=== PATIENT | female | born 1995 | race Two or more races ===

== ENCOUNTER 2017-12-26 06:21 | Outpatient (CLI) | payer OTHER ==
[2017-12-27] MEDS ORDERED: PRENATAL TABLE1 EAC3 PO (11:07)
== END 2017-12-26 09:45 | disposition home or self-care (01) ==
LOC: OBS/DEL 06:21
DX: O47.1 False labor at or after 37 completed weeks of gestation (principal); Z34.03 Encounter for supervision of normal first pregnancy, third trimester

== ENCOUNTER 2017-12-27 05:58 | Inpatient (IN) | payer OTHER ==
[~2017-12-27] VITALS: Ht 165.1 cm; Wt 72.6 kg
[2017-12-27] MEDS ORDERED: PRENATAL TABLE1 EAC3 PO (11:07)
== END 2017-12-29 11:51 | DRG 775 ==
LOC: LDR 05:58 → OB/GYN 05:58
PROC: 0KQM0ZZ Repair Perineum Muscle, Open Approach (ICD-10-PCS; principal; 2017-12-27)
PROC: 10E0XZZ Delivery of Products of Conception, External Approach (ICD-10-PCS; 2017-12-27)
PROC: 4A1HXCZ Monitoring of Products of Conception, Cardiac Rate, External Approach (ICD-10-PCS; 2017-12-27)
DX: O70.1 Second degree perineal laceration during delivery (principal); Z37.0 Single live birth; Z3A.38 38 weeks gestation of pregnancy